=== PATIENT | female | born 1980 | race Caucasian/White ===

== ENCOUNTER 2016-05-03 13:12 | Emergency (ER) | payer OTHER ==
[~2016-05-03] VITALS: Ht 170.2 cm; Wt 91.7 kg
[~2016-05-03 13:12] MED LIST: FLEXERIL10 MG PO; MOTRIN800 MG PO
[2016-05-03 14:05] LABS: HEMATOCRIT 37.3 % (36.0-46.0); MCH 31.4 PG (29.0-34.0); MCHC 35.7 G/DL (30.0-36.0); PLATELET COUNT 348 K/uL (156-360); RBC DIS.WIDTH-CV 12.3 % (11.8-14.6); RBC DIS.WIDTH-SD 38.6 % (39-53); RED BLOOD COUNT 4.24 M/uL (3.80-5.20); WHITE BLOOD COUNT 8.3 K/uL (4.1-10.2)
[2016-05-03 14:16] LABS: CHLORIDE 102 mEq/L (99-109); POTASSIUM 3.2 mEq/L (3.7-5.4); SODIUM 139 mEq/L (136-147)
[2016-05-03 14:18] LABS: GLUCOSE 100 mg/dL (70-99)
[2016-05-03 14:19] LABS: ANION GAP 11 MEQ/L (2-14)
[2016-05-03 14:20] LABS: TOTAL BILIRUBIN 0.8 mg/dL (0.0-1.0)
[2016-05-03 14:21] LABS: ALKALINE PHOSPHATASE 71 IU/L (3-129)
[2016-05-03 14:22] LABS: GFR ESTIMATE (CALCULATED) > 59 mL/min/
[2016-05-03 14:23] LABS: DIRECT BILIRUBIN 0.3 mg/dL (0.0-0.3); UREA NITROGEN (BUN) 21 mg/dL (9-23)
[2016-05-03 15:33] VITALS: BP 148/90
== END 2016-05-03 15:34 | disposition home or self-care (01) ==
LOC: RME 13:12 → EME 13:12 → RME 15:34
PROVIDERS: Nurse Practitioner Family
DX: Z57.8 Occupational exposure to other risk factors (principal); S61.238A Puncture wound without foreign body of other finger without damage to nail, initial encounter; X58.XXXA Exposure to other specified factors, initial encounter; W46.1XXA Contact with contaminated hypodermic needle, initial encounter
CPT/HCPCS: 80048; 80076; 85027; 99281; 99283